=== PATIENT | male | born 1950 | race Caucasian/White ===

== ENCOUNTER 2019-06-22 07:47 | Observation (INO) | payer OTHER, SELFPAY ==
[2019-06-22] VITALS (9 sets, daily range): BP systolic 88–131; BP diastolic 52–90; PULSE 68–87; RESP 14–17; TEMP 36.8–37.5; O2SAT 89–96; BMI 22.1; BMI 21.3; BMI 22.2
--- NOTE | 2019-06-22 08:01 | EKG12_ITS ---
Test Reason : CP Blood Pressure : / mmHG Vent. Rate : 078 BPM Atrial Rate : 078 BPM P-R Int : 254 ms QRS Dur : 154 ms QT Int : 406 ms P-R-T Axes : 070 104 018 degrees QTc Int : 462 ms Atrial-sensed ventricular-paced rhythm with prolonged AV conduction with occasional Premature ventric ular complexes Abnormal ECG Confirmed by WM HERNANDEZ, SHANI ([id number]), image editor JAYDEN SENA ([id number]) on 06/29/2019 9:34:46 A M Referred By: ZURDO Confirmed By:KELSEY BURK MD
--- NOTE | 2019-06-22 08:03 | ED.VIS.GEN ---
History of Present Illness Chief Complaint: Chest Pain Informant: Patient Onset: Today Context: Gradual Onset Timing: Continuous Narrative: Is a 69-year-old male with history of ulcerative colitis and coronary artery disease presenting from home with chest pain. Patient states that the past few days he has had what he describes as left-sided rib pain. He attributed to playing a picking up his 3-year-old grandson earlier in the week. This morning when he woke up he knows he has substernal chest pain. The pain is been constant. It is not worsened with any physical activity or deep breathing. Patient did take a full dose aspirin this morning because he was having chest pain. He does not have associated shortness of breath or difficulty breathing. The pain does not radiate. The patient came to the emergency room to be evaluated further. 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 Molina. He had CABG 10 years ago as well as pacemaker placed. Patient denies any associated symptoms. He states besides the chest pain he is feeling well. He denies any other complaints at this time. Past Medical History - Allergies and Home Meds Allergies/Adverse Reactions: Allergies naproxen sodium [From Aleve] Allergy (Verified 06/22/19 07:51) Anaphylaxis Cnkahln-Nie-Sas Reductase Inhibitor Adverse Reaction (Verified 06/22/19 07:51) Upset Stomach Primary Care Physician: Duke Walters MD [Primary Care Provider] - Past Medical History: - - Ulcerative colitis, coronary artery disease Surgical History: appendectomy, coronary bypass surgery, - - pacemaker, colonoscopy, heart cath but no stents, colectomy with ileostomy and subsequent reversal Lives: Spouse/ Significant Other Smoking Status: Never smoker - Family History Paternal Family History: Reports: - - father work at age 42 Maternal Family History: Reports: - - mother had heart failure and at age 93 Review of Systems All systems negative except as indicated Cardiovascular: Reports: Chest pain Physical Exam Vital Signs/Narrative: Vital Signs Temp Pulse Resp BP Pulse Ox 06/22/19 07:48 98.2 F 73 17 131/85 H 95 Inital Vital Signs reviewed: Yes General: Well nourished, Well developed, No Acute Distress Head: Normocephalic, Atraumatic Eyes: Perrl, EOMI ENT: Moist mucous membranes, No rhinorrhea Neck: Supple, Nontender Cardiovascular: Regular rate, Regular rhythm, No murmurs, - - Pacemaker pouch palpated?left superior chest wall, equal pulses in extremities Respiratory: No distress, CTA bilaterally, Chest nontender Abdomen: Soft, Nontender, Nondistended, Normal bowel sounds Back: Nontender, Normal Inspection Extremities: Nontender, No edema Skin: Normal color, No rash Neurological: Alert, Oriented x3, Cranial nerves II-XII grossly intact, Normal Strength, Normal Sensation Psychological: Normal affect, Normal Mood Diagnostic/Tx/Re-eval Chest X-Ray - ED: 2 View, Read by ED Physician, Read by Radiologist, No Acute Disease Clinical Impression(s) from Imaging Studies Chest X-Ray 06/22/19 08:31 IMPRESSION: A left cardiac pacemaker is noted in place and is patient is status post CABG, otherwise the chest shows no acute pathology. Electronically Signed: Wu Cordoba, at 9:03 EDT Tel , Service support , Laboratory Data 06/22/19 06/22/19 02:55 02:55 WBC 8.5 RBC 5.02 Hgb 13.5 Hct 43.3 MCV 86.3 MCH 26.9 L MCHC 31.2 L RDW Std Deviation 47.8 H RDW Coeff of [place] 15.2 H Plt Count 246 MPV 9.7 Immature Gran % (Auto) 0.400 Neut % (Auto) 78.9 H Lymph % (Auto) 10.3 L [place] % (Auto) 6.9 Eos % (Auto) 2.8 Baso % (Auto) 0.7 Absolute Neuts (auto) 6.7 Absolute Lymphs (auto) 0.88 Nucleated RBC % 0 Sodium 137 Potassium 4.0 Chloride 107 Carbon Dioxide 28.0 Anion Gap 2 L BUN 13 Creatinine 1.07 Estim Creat Clear Calc 65.51 Est GFR (MDRD) Af Amer 88 Est GFR (MDRD) Non-Af 73 BUN/Creatinine Ratio 12.1 Glucose 99 Calcium 9.5 Troponin I < 0.015 - Rhythm Strip Rhythm Strip: Paced Rate: 78 Ectopy: PVC(s) - EKG Initial EKG Interpretation: - - Atrial sensed ventricular paced rhythm at a rate of 78 bpm PVC present QT/QTc 406/462 J-point depression in V1 through V2, no reciprocal changes Compared to prior EKG on 02/15/2017 patient's rhythm is now paced, depressions more prominent on prior EKG - Medical Decision Making Evaluated for chest pain. Is not related with exertion. Patient has multiple cardiac risk factors putting history of coronary artery disease/CABG and his KATIE score is 33. Opponent is negative. EKG is abnormal but does not show dynamic changes. Patient is given nitro sublingual. He received 2 doses but this is stopped due to subsequent hypotension. Patient is and given morphine for pain. On reevaluation patient states his pain is a little better but now he has more pain in his neck. He states he is not sure if that due to signet the bed without a pillow versus patient was chest pain. Patient will be admitted for further cardiac evaluation due to his risk factors. He is agreeable to this plan. Patient did take a full dose aspirin prior to arrival. Patient admitted to Dr. Blood in stable condition. ED Disposition - Plan for ED Patient: Disposition: Acute Care Hospital [facility] Diagnosis: Chest pain, Abnormal ECG Referrals: Duke Walters MD [Primary Care Provider] -
[2019-06-22] MEDS: Nitroglycerin SL (ED/IMG/CATH) 0.4 MG TABLET SUBLINGUAL ×2 (08:09→08:14)
[2019-06-22 08:22] LABS: Absolute Lymphocyte Count 0.88 X10^3/uL (0.83-4.51); Absolute Neutrophil Count 6.7 X10^3/uL (2.0-7.7); Basophil# 0.06 X10^3/uL; Basophil% 0.7 % (0-1); Eosinophil# 0.24 X10^3/uL; Eosinophils% 2.8 % (0-5); Hematocrit 43.3 % (40-54); Hemoglobin 13.5 g/dL (13.0-16.5); Lymphocyte # 0.88 X10^3/ul (4.0); Lymphocyte % 10.3 % (19-41); Mean Corp Hgb Conc 31.2 g/dL (32-36); Mean Corpuscular Hgb 26.9 pg (27.0-32.0); Mean Corpuscular Volume 86.3 fL (80-94); Mean Platelet Vol. 9.7 fl (6.2-12.0); Monocyte# 0.59 X10^3/uL; Monocyte% 6.9 % (0-10); NRBC Flagged by Analyzer 0 % (0-5); Neutrophil # 6.71 X10^3/uL (2.7-7.7); Neutrophil % 78.9 % (47-70); Platelet Count 246 K/mm3 (150-450); RBC Distribution Width CV 15.2 % (11.6-14.6); RBC Distribution Width SD 47.8 fl (35.1-43.9); Red Blood Count 5.02 M/mm3 (4.6-6.2); White Blood Count 8.5 K/mm3 (4.4-11.0)
--- NOTE | 2019-06-22 08:31 | RAD_ITS ---
EXAM DESCRIPTION: PA and lateral chest CLINICAL HISTORY: 69 years Male, chest pain status post CABG COMPARISON: Previous portable chest obtained on 02/15/2017 FINDINGS: A left cardiac pacemaker is noted in place. Sternotomy sutures are also seen. The rest of the thorax is intact.The heart and mediastinum appear to be within normal limits. The lungs appear to be well areated without evidence of pneumonic consolidation or pleural effusion. RAD/Chest PA and Lateral IMPRESSION: A left cardiac pacemaker is noted in place and is patient is status post CABG, otherwise the chest shows no acute pathology. Electronically Signed: Wu Cordoba, at 9:03 EDT Tel , Service support ,
[2019-06-22 08:35] LABS: Anion Gap 2 (5-15); BUN 13 mg/dL (7-18); BUN/Creat Ratio 12.1 RATIO (10-20); Calcium,Total 9.5 mg/dL (8.5-10.1); Chloride 107 mmol/L (98-107); Creatinine, Serum 1.07 mg/dL (0.70-1.30); EST Glomerular Filtration Rate 73 mL/min (>60); Est Glom Filt Rate - Afr Amer 88 mL/min (>60); Estimated Creatinine Clearance 65.51 ml/min; Glucose 99 mg/dL (74-106); Sodium Level 137 mmol/L (136-145)
--- NOTE | 2019-06-22 09:11 | NURSING ---
DR JOSE LUIS HEIN
--- NOTE | 2019-06-22 09:14 | PCM.HP.STD ---
History of Present Illness Date of Admission: 06/22/19 Chief Complaint: Chest pain The patient is a 69 year old M with a past medical history as listed which includes open heart surgery 10 years ago at [facility] and colectomy due to ulcerative colitis. He was admitted with a complaint of chest pain which started about a day ago. Pain was pressure-like and radiated up his neck. He had no assisted shortness of breath, lightheadedness, dizziness or palpitations. In addition in the ED, vitals were stable. CBC adn BMP were unremarkable. Initial troponin was negative. CXR showed no acute cardiopulmonary process. He was admitted to be managed for chest pain, to rule out ACS.[] Past Medical History Past Medical History (Chronic Problems): Chronic Problems Protein calorie malnutrition (Chronic) Renal cyst (Chronic) Nephrolithiasis (Chronic) Ulcerative colitis (Chronic) Pacemaker (Chronic) CAD (coronary artery disease) (Chronic) hx cabg Cholelithiasis (Chronic) Allergies naproxen sodium [From Aleve] Allergy (Verified 06/22/19 07:51) Anaphylaxis Cphykkj-Hsz-Kyi Reductase Inhibitor Adverse Reaction (Verified 06/22/19 07:51) Upset Stomach Home Medications: Ambulatory Orders Medication Instructions Recorded Aspirin [Aspirin, Baby] 81 mg PO DAILY@0800 06/22/19 Surgical History: appendectomy, coronary bypass surgery, - - pacemaker, colonoscopy, heart cath but no stents, colectomy with ileostomy and subsequent reversal Psychiatric History: No pertinent psych hx Lives: Spouse/ Significant Other Smoking Status: Never smoker Alcohol: None Drugs: None - *Family History Paternal History Items: - - father work at age 42 Maternal History Items: - - mother had heart failure and at age 93 Review of Systems Constitutional: Denies: Chills, Fever, Weight Change Eyes: Denies: Blurred vision HEENT: Denies: Head Aches, Sinus Congestion, Sinus Drainage Cardiovascular: Reports: Chest Pain, Chest Pressure. Denies: Chest Tightness, Heaviness, Light Headedness, Orthopnea, Palpitations Respiratory: Denies: Cough, Shortness of Breath, Shortness of breath at rest, Sputum production Gastrointestinal: Denies: Abdominal Pain, Nausea, Vomiting Genitourinary: Denies: Dysuria Musculoskeletal: Denies: Joint Pain, Joint Tenderness Skin: Denies: Rash, Wounds Neurological: Denies: Numbness, Tingling, Focal weakness Psychiatric: Denies: Anxiety, Depression, Homicidal Ideations, Suicidal Ideations Hematologic/ Lymphatic: Denies: Easy Bruising, Easy Bleeding VTE Information - Inpt Only VTE Present on Admission: No VTE Pharm Prophylaxis ordered?: Yes Patient Problems: Active and Suspected Problems Chest pain (Acute) Abnormal ECG (Acute) - Physical Exam General: Alert, Oriented x3, Cooperative, No apparent distress HEENT: Atraumatic, PERRLA, EOMI, Normocephalic Oral: Moist Mucosa Neck: Supple, No JVD, Negative Carotid Bruits Lungs: Clear to auscultation, Normal air movement, No rhonchi, No wheeze, No rales Cardiovascular: Regular rate, Regular Rhythm, Normal S1, Normal S2, No murmurs Abdomen: Bowel Sounds Present, Soft, Non Tender, Non-Distended, No Hepato-splenomegaly, - - laparotomy scar Extremities: No clubbing, No cyanosis, No edema, Capillary Refill Less than 3 Seconds Skin: No rashes, No breakdown Musculoskeletal: No Tenderness to Palpation of Joints or Extremities Lymphatic: No Cervical, Supraclavicular, or Inguinal Adenopathy Neurological: Cranial nerves II-XII grossly intact, Neuro grossly intact, Motor Exam 5/5 strength throughout Psych/Mental Status: Normal Affect, Appropriate, Alert and oriented to time, place, person, mood and affect Vital Signs Temp Pulse Resp BP Pulse Ox 98.2 F 75 14 88/52 L 89 06/22/19 07:48 06/22/19 08:22 06/22/19 08:22 06/22/19 08:22 06/22/19 08:22 Oxygen Delivery Method Room Air Weight: 158 lb 15.253 oz Body Mass Index (BMI) 22.1 Laboratory Tests Past 24 Hrs 06/22/19 06/22/19 02:55 02:55 WBC 8.5 RBC 5.02 Hgb 13.5 Hct 43.3 MCV 86.3 MCH 26.9 L MCHC 31.2 L RDW Std Deviation 47.8 H RDW Coeff of [place] 15.2 H Plt Count 246 MPV 9.7 Immature Gran % (Auto) 0.400 Neut % (Auto) 78.9 H Lymph % (Auto) 10.3 L [place] % (Auto) 6.9 Eos % (Auto) 2.8 Baso % (Auto) 0.7 Absolute Neuts (auto) 6.7 Absolute Lymphs (auto) 0.88 Nucleated RBC % 0 Sodium 137 Potassium 4.0 Chloride 107 Carbon Dioxide 28.0 Anion Gap 2 L BUN 13 Creatinine 1.07 Estim Creat Clear Calc 65.51 Est GFR (MDRD) Af Amer 88 Est GFR (MDRD) Non-Af 73 BUN/Creatinine Ratio 12.1 Glucose 99 Calcium 9.5 Troponin I < 0.015 Diagnostic Data Chest X-Ray 06/22/19 08:31 IMPRESSION: A left cardiac pacemaker is noted in place and is patient is status post CABG, otherwise the chest shows no acute pathology. Electronically Signed: Wu Cordoba, at 9:03 EDT Tel , Service support , Assessment/Plan All Active Problems Chest pain (Acute) Abnormal ECG (Acute) C. difficile colitis (Resolved) 69 y/o admitted with a complaint of chest pain 1. Chest pain to r/o ACS initial troponin negative, will cycle check lipid panel SL nitroglycerin prn and pO aspirin 81mg daily for stress test tomorrow if troponins are negative. 2. CAD s/p CABG: on aspirin. Follows up with coffee attendant in [place] 3. Ulcerative colitis s/p colectomy: stable. NO colostomy bag DVT prophylaxis; lovenox Code Visit OBSV E&M: 38655 Initial observation care L2
--- NOTE | 2019-06-22 10:09 | EKG12_ITS ---
Test Reason : CP ADMISSION EKG Blood Pressure : / mmHG Vent. Rate : 074 BPM Atrial Rate : 074 BPM P-R Int : 246 ms QRS Dur : 152 ms QT Int : 398 ms P-R-T Axes : 033 106 052 degrees QTc Int : 441 ms AV dual-paced rhythm with prolonged AV conduction with occasional Premature ventricular complexes Abnormal ECG When compared with ECG of 22-JUN-2019 07:52, MANUAL COMPARISON REQUIRED, DATA IS UNCONFIRMED Confirmed by WM HERNANDEZ, SHANI ([id number]), acquisition editor IMTIAZ COREA ([id number]) on 06/29/2019 10:28:34 AM Referred By: JOSE LUIS Confirmed By:KELSEY BURK MD
[2019-06-23 03:03] VITALS: PULSE 81
[2019-06-23 03:10] VITALS: BP 109/57; PULSE 73; RESP 16; TEMP 36.9; O2SAT 92
--- NOTE | 2019-06-23 05:55 | EKG12_ITS ---
Test Reason : AM EKG Blood Pressure : / mmHG Vent. Rate : 071 BPM Atrial Rate : 071 BPM P-R Int : 248 ms QRS Dur : 158 ms QT Int : 420 ms P-R-T Axes : 054 103 040 degrees QTc Int : 456 ms AV dual-paced rhythm with prolonged AV conduction Abnormal ECG When compared with ECG of 22-JUN-2019 10:45, MANUAL COMPARISON REQUIRED, DATA IS UNCONFIRMED Confirmed by WM HERNANDEZ, SHANI ([id number]), editor continuity and script IMTIAZ COREA ([id number]) on 06/29/2019 10:12:31 AM Referred By: TALAT Confirmed By:KELSEY BURK MD
[2019-06-23] MEDS: Aspirin 81 MG TAB.CHEW PO (06:04)
[2019-06-23 06:05] LABS: Absolute Lymphocyte Count 0.94 X10^3/uL (0.83-4.51); Absolute Neutrophil Count 4.9 X10^3/uL (2.0-7.7); Basophil# 0.06 X10^3/uL; Basophil% 0.9 % (0-1); Eosinophil# 0.17 X10^3/uL; Eosinophils% 2.5 % (0-5); Hematocrit 40.6 % (40-54); Hemoglobin 13.1 g/dL (13.0-16.5); Lymphocyte # 0.94 X10^3/ul (4.0); Lymphocyte % 13.9 % (19-41); Mean Corp Hgb Conc 32.3 g/dL (32-36); Mean Corpuscular Hgb 27.5 pg (27.0-32.0); Mean Corpuscular Volume 85.3 fL (80-94); Mean Platelet Vol. 9.9 fl (6.2-12.0); Monocyte# 0.68 X10^3/uL; Monocyte% 10.1 % (0-10); NRBC Flagged by Analyzer 0 % (0-5); Neutrophil # 4.87 X10^3/uL (2.7-7.7); Neutrophil % 72.3 % (47-70); Platelet Count 237 K/mm3 (150-450); RBC Distribution Width CV 15.3 % (11.6-14.6); RBC Distribution Width SD 47.6 fl (35.1-43.9); Red Blood Count 4.76 M/mm3 (4.6-6.2); White Blood Count 6.7 K/mm3 (4.4-11.0)
[2019-06-23 06:19] LABS: Anion Gap 8 (5-15); BUN 15 mg/dL (7-18); BUN/Creat Ratio 17.2 RATIO (10-20); Calcium,Total 9.3 mg/dL (8.5-10.1); Chloride 106 mmol/L (98-107); Creatinine, Serum 0.87 mg/dL (0.70-1.30); EST Glomerular Filtration Rate 92 mL/min (>60); Est Glom Filt Rate - Afr Amer 111 mL/min (>60); Estimated Creatinine Clearance 77.67 ml/min; Glucose 86 mg/dL (74-106); Potassium 3.8 mmol/L (3.5-5.1); Sodium Level 140 mmol/L (136-145)
[2019-06-23 07:33] VITALS: PULSE 102
[2019-06-23 07:34] VITALS: PULSE 83
[2019-06-23 09:30] VITALS: BP 111/73; PULSE 80; RESP 16; TEMP 36.8; O2SAT 97
--- NOTE | 2019-06-23 09:59 | NURSING ---
vs taken late due to pt off floor for testing
--- NOTE | 2019-06-23 10:34 | STRESSREP ---
Stress Test Report Date: [] Procedure: Exercise tolerance test/imaging study Indications: [Chest pain] Consent: Per the patient Procedure: The patient exercised on a Moustapha protocol for 6 minutes achieving a peak heart rate of 126 bpm (84 % predicted maximal heart rate) with a peak blood pressure 142/64 mmHg and a peak MET capacity of 7 METs. The baseline ECG demonstrated normal sinus rhythm, nonspecific intraventricular conduction delay. The peak exercise ECG demonstrated no significant ischemic changes. EKG during recovery revealed no significant ischemic changes Patient had PVCs with exercise. The functional capacity was considered normal for age. There was [no complaint of chest discomfort during exercise or recovery]. The examination was discontinued secondary to knee pain. Impression: 1. Technically adequate (percent predicted maximal heart rate greater than 85%) exercise tolerance test 2. Stress test is negative for exercise-induced EKG changes of ischemia 3. The test test is negative for exercise-induced chest pain 4. Functional capacity is normal for age 5. Nuclear images pending Myocardial perfusion imaging study: Technique: The patient was injected with [] mCi of technetium 99m Cardiolite and subsequently rest SPECT Cardiolite nuclear imaging was obtained in the horizontal long, vertical long, and short axis views. The patient exercised on a Moustapha protocol. Please see above for details. The patient was injected with [] mCi of technetium 99m Cardiolite and subsequently stress SPECT Cardiolite nuclear imaging was obtained in the horizontal long, vertical long, and short axis views. A gated Cardiolite study at peak stress was obtained. Interpretation: Rest and stress SPECT Cardiolite nuclear imaging status post realignment, normalization, and attenuation correction, demonstrates decreased radioisotope uptake on the inferior wall on both the rest and stress images to attenuation correction. After recognition correction there is normal myocardial radioisotope uptake. The gated Cardiolite study demonstrates no significant regional wall motion abnormalities. The reported LVEF is 55 %. Impression: 1. There is no evidence of significant ischemia or infarction. 2. The gated Cardiolite study reports an LVEF of 55 %. This note was generated with [facility] software. It may contain incorrect words, spelling, and punctuation that were not noted in checking the note before signing.
--- NOTE | 2019-06-23 11:32 | DCINST_ITS ---
- Discharge Diagnoses Current Active Problems: Current Active and Chronic Problems Chest pain (Acute) Abnormal ECG (Acute) You will use the following diet at home:: Cardiac Your food should be the consistency of: Regular Your liquids should be the consistency of: Regular/Thin Discharge Activity: Return to Normal Activity Weight Bearing Status: Weight bearing as tolerated Call your doctor if you observe: Shortness of breath, Chest pain Instructions: What Is Angina?, Recognizing a Heart Attack or Angina Allergies/Adverse Reactions: Allergies naproxen sodium [From Aleve] Allergy (Verified 06/22/19 07:51) Anaphylaxis Jqtyrtz-Ryp-Cpx Reductase Inhibitor Adverse Reaction (Verified 06/22/19 07:51) Upset Stomach Medications to take at Discharge Aspirin [Aspirin, Baby] 81 mg PO DAILY@0800 06/22/19 Nitroglycerin (INPATIENT USE) [Nitrostat] 0.4 mg SUBLINGUAL Q5M PRN #30 tab.subl 06/23/19 The following prescriptions were given: Nitroglycerin (INPATIENT USE) [Nitrostat] 0.4 mg SUBLINGUAL Q5M PRN #30 tab.subl PRN Reason: Cardiac/Chest Pain Prescription Printed Please follow up with your Primary Care Physician in: 1-2 weeks Test Results: Test results from this visit will be discussed in further detail at your follow- up appointment, if applicable. When: follow up wiht your singing waiter or waitress in [place] in 1-2 weeks Proposed Discharge Date: 06/23/19
--- NOTE | 2019-06-23 11:34 | DS.PCM_ITS ---
Discharge Date and Diagnosis Date of Admission: 06/22/19 Date of Discharge: 06/23/19 - Primary Discharge Diagnosis Active and Suspected Problems Chest pain (Acute) Abnormal ECG (Acute) - Secondary Discharge Diagnosis Chronic Problems Protein calorie malnutrition (Chronic) Renal cyst (Chronic) Nephrolithiasis (Chronic) Ulcerative colitis (Chronic) Pacemaker (Chronic) CAD (coronary artery disease) (Chronic) hx cabg Cholelithiasis (Chronic) Hospital Course and Treatment Imaging Results: 06/23/19 05:55 Nuclear Stress Test - Treadmil [NM] AM (NON MEDS) Operations: None Procedures: Stress test Summary of Care Provided: The patient is a 69 year old M with a past medical history as listed which includes open heart surgery 10 years ago at [facility] and colectomy due to ulcerative colitis. He was admitted with a complaint of chest pain which started about a day ago. Pain was pressure-like and radiated up his neck. He had no assisted shortness of breath, lightheadedness, dizziness or palpitations. In addition in the ED, vitals were stable. CBC adn BMP were unremarkable. Initial troponin was negative. CXR showed no acute cardiopulmonary process. He was admitted to be managed for chest pain, to rule out ACS. Troponins x3 were negative. He had a stress test on 06/23/2019 which was negative for any stress- induced myocardial ischemia and reported LVEF was 55%. He remained stable and was discharged on 06/23/2019 and is follow-up with his primary care doctor and his nurse research in [place]. Patient seen and examined prior to discharge. He had no complaints and felt well. Review of systems otherwise negative. Labs and vitals reviewed. Home medication reviewed and reconciled. o/e: Vital Signs Height 5 ft 11 in Weight: 153 lb 3.54 oz Weight in Pounds 153.2 lbs Pulse Ox 97 Temperature 98.2 F Pulse Rate 80 Respiratory Rate 16 Blood Pressure 111/73 Blood Pressure Position Semi-Fowlers General: Alert, Oriented x3, Cooperative, No apparent distress HEENT: Atraumatic, PERRLA, EOMI, Normocephalic Oral: Moist Mucosa Neck: Supple, No JVD, Negative Carotid Bruits Lungs: Clear to auscultation, Normal air movement, No rhonchi, No wheeze, No rales Cardiovascular: Regular rate, Regular Rhythm, Normal S1, Normal S2, No murmurs Abdomen: Bowel Sounds Present, Soft, Non Tender, Non-Distended, No Hepato- splenomegaly, Extremities: No clubbing, No cyanosis, No edema, Capillary Refill Less than 3 Seconds Skin: No rashes, No breakdown Musculoskeletal: No Tenderness to Palpation of Joints or Extremities Lymphatic: No Cervical, Supraclavicular, or Inguinal Adenopathy Neurological: Cranial nerves II-XII grossly intact, Neuro grossly intact, Motor Exam 5/5 strength throughout Psych/Mental Status: Normal Affect, Appropriate, Alert and oriented to time, place, person, mood and affect Plan as above. - Physical Exam Vital Signs Temp Pulse Resp BP Pulse Ox 98.2 F 80 16 111/73 97 06/23/19 09:30 06/23/19 09:30 06/23/19 09:30 06/23/19 09:30 06/23/19 09:30 Oxygen Delivery Method Room Air Weight: 153 lb 3.54 oz Body Mass Index (BMI) 21.3 Intake and Output for Last 24 Hours 06/21/19 06/22/19 06/23/19 23:59 23:59 23:59 Intake Total 480 / 480 Balance 480 / 480 Laboratory Tests Past 24 Hrs 06/22/19 06/23/19 06/23/19 13:20 05:15 05:15 WBC 6.7 RBC 4.76 Hgb 13.1 Hct 40.6 MCV 85.3 MCH 27.5 MCHC 32.3 RDW Std Deviation 47.6 H RDW Coeff of [place]quito 15.3 H Plt Count 237 MPV 9.9 Immature Gran % (Auto) 0.300 Neut % (Auto) 72.3 H Lymph % (Auto) 13.9 L [place] % (Auto) 10.1 H Eos % (Auto) 2.5 Baso % (Auto) 0.9 Absolute Neuts (auto) 4.9 Absolute Lymphs (auto) 0.94 Nucleated RBC % 0 Sodium 140 Potassium 3.8 Chloride 106 Carbon Dioxide 26.0 Anion Gap 8 BUN 15 Creatinine 0.87 Estim Creat Clear Calc 77.67 Est GFR (MDRD) Af Amer 111 Est GFR (MDRD) Non-Af 92 BUN/Creatinine Ratio 17.2 Glucose 86 Calcium 9.3 Troponin I < 0.015 Discharge Diet: Low fat/ Low Cholesterol Discharge Activity: Return to Normal Activity Weight Bearing Status: Weight bearing as tolerated Call your doctor if you observe: Shortness of breath, Chest pain Home Medications: Medications to take at Discharge Aspirin [Aspirin, Baby] 81 mg PO DAILY@0800 06/22/19 Nitroglycerin (INPATIENT USE) [Nitrostat] 0.4 mg SUBLINGUAL Q5M PRN #30 tab.subl 06/23/19 Following Prescrptions Were Given to Patient: Nitroglycerin (INPATIENT USE) [Nitrostat] 0.4 mg SUBLINGUAL Q5M PRN #30 tab.subl PRN Reason: Cardiac/Chest Pain Prescription Printed Primary Care Physician: Duke Walters MD [Primary Care Provider] - Please follow up with your Primary Care Physician in: 1-2 weeks When: follow up wiht your nurse research in [place] in 1-2 weeks Patient Instructions: What Is Angina?, Recognizing a Heart Attack or Angina Disposition: Home Minutes spent on discharge:: 35 Patient Condition:: Stable Medical Necessity - Tobacco Use Smoking Status: Never smoker Meaningful Use Info Meaningful Use Diagnoses (Choose all that apply): None applicable Code Visit OBSV E&M: 04840 Observation care discharge
--- NOTE | 2019-06-23 11:34 | PCM.WORK.EX ---
Work/School Excuse Work/School Excuse for:: Patient Please excuse this person from:: Work From: 06/23/19 through: 06/26/19
--- NOTE | 2019-06-23 12:04 | PHA.DC.MC ---
Pharmacy Service has performed discharge medication reconciliation and counseling for this patient. The patient's discharge medication list was reviewed for discrepancies and discrepancies were resolved. The patient was counseled on the following discharge medications and changes in medications for homegoing were reviewed. 1. NITROSTAT The Reason for Use, instructions for use, and potential side effects were reviewed for all new medications. The patient's questions regarding all of their medications were answered. The patient was able to verbally demonstrate an understanding of their discharge medications. Home Medications Aspirin [Aspirin, Baby] 81 mg PO DAILY@0800 06/22/19 Nitroglycerin (INPATIENT USE) [Nitrostat] 0.4 mg SUBLINGUAL Q5M PRN #30 tab.subl 06/23/19
== END 2019-06-23 11:33 | disposition home or self-care (01) ==
LOC: ED 09:16 → PCU 09:24
PROVIDERS: Admitting Provider Student in an Organized Health Care Education/Training Program; Emergency Provider Emergency Medicine; Family Provider Family Medicine; PCP Family Medicine; Visit Provider Student in an Organized Health Care Education/Training Program
DX: R07.89 Other chest pain (principal); K51.90 Ulcerative colitis, unspecified, without complications; I25.10 Atherosclerotic heart disease of native coronary artery without angina pectoris; R94.31 Abnormal electrocardiogram [ECG] [EKG]; Z95.1 Presence of aortocoronary bypass graft; Z79.82 Long term (current) use of aspirin; Z95.0 Presence of cardiac pacemaker
CPT/HCPCS: 36415; 71046; 78452; 80048; 84484; 85025; 93005; 93017; 99218; 99285; A9500; A4216; G0378

== ENCOUNTER 2020-12-07 13:29 | Outpatient (RCR) | payer OTHER, SELFPAY ==
[2019-06-22 09:50] VITALS: BMI 21.3
== END 2021-02-19 23:59 ==
LOC: IMMUN 13:29
PROVIDERS: PCP Family Medicine; Visit Provider Family Medicine
DX: Z23 Encounter for immunization (principal)
CPT/HCPCS: 0001A; 0002A; 91300